=== PATIENT | female | born 1940 | race Caucasian/White ===

== ENCOUNTER 2023-10-04 10:30 | Outpatient (CLI) | payer MEDICARE, BC, SELFPAY | END 2023-10-04 10:31 | disposition home or self-care (01) | LOC: INJ CL 10:32 | PROVIDERS: PCP Internal Medicine; Visit Provider Family Medicine | DX: M54.16 Radiculopathy, lumbar region (principal); M51.36 Other intervertebral disc degeneration, lumbar region | CPT/HCPCS: 62323; J0702; Q9966 ==